=== PATIENT | male | born 1990 ===

== ENCOUNTER 2021-01-11 20:52 | Emergency (ER) | payer MEDICAID, SELFPAY ==
--- NOTE | ~2021-01-11 | CT_ITS ---
EXAMINATION: CT ABDOMEN AND PELVIS WITH CONTRAST CLINICAL INFORMATION: Abdominal pain. COMPARISON: No similar priors. TECHNIQUE: Multidetector volumetric images were obtained from the superior aspect of the liver through the pubic symphysis following administration 85 mL of Omnipaque 350 intravenous contrast. Sagittal and coronal reformatted images were obtained on the technologist's workstation. Oral contrast: No This CT examination was performed using dose optimization techniques as appropriate, variously including the following: *Automated exposure control *Adjustment of mA and/or kV according to patient size (this includes techniques or standardized protocols for targeted exams where dose is matched to indication/reason for exam; i.e. extremities or head) *Use of iterative reconstruction technique DLP: 705 mGy-cm FINDINGS: LUNG BASES: Mild dependent atelectases. No focal consolidation or pleural effusion. LIVER, GALLBLADDER, AND BILIARY TREE: The liver is normal in size, shape, and attenuation. No focal hepatic lesion or biliary ductal dilatation is present. The gallbladder is underdistended with no evidence of radiopaque gallstones, gallbladder wall thickening, or obvious pericholecystic inflammatory changes. PANCREAS: No focal abnormalities. The main pancreatic duct is nondilated. No peripancreatic free fluid or fat stranding. SPLEEN: Unremarkable. ADRENAL GLANDS: Unremarkable. KIDNEYS AND URETERS: The kidneys are normal in size, shape, and attenuation. There is a too small to characterize hypodensity in the upper pole of the left kidney (7:72) which statistically favored to represent a simple cyst and does not require further follow-up. No hydronephrosis, hydroureter, or calculi seen. No perinephric stranding. BLADDER: Unremarkable. GASTROINTESTINAL TRACT: There is wall thickening and inflammatory changes of the sigmoid colon and rectosigmoid junction. No other areas of active inflammatory bowel changes. Normal appendix. No bowel obstruction. There is a small hiatal hernia. The stomach and the small bowel are nondilated. ABDOMINAL WALL: Small bilateral fat-containing inguinal hernias. LYMPH NODES: There are a few prominent mesenteric and retroperitoneal lymph nodes which are likely reactive in nature. No lymphadenopathy by size criteria. VASCULAR: Unremarkable. PELVIC VISCERA: Trace amount of free fluid. OSSEOUS STRUCTURES: No acute or suspicious osseous abnormalities. CT/CT abdomen pelvis w con IMPRESSION: There is wall thickening and fat stranding centered in the sigmoid colon and rectosigmoid junction with questionable mild wall thickening of the rectum which is under distended. These constellation of findings are in favor to represent acute diverticulitis or acute colitis. No evidence of bowel obstruction, drainable collection or free air.
[2021-01-11 21:07] VITALS: BP 150/75; PULSE 93; RESP 16; TEMP 37.1; O2SAT 97; BMI 34.3
--- NOTE | 2021-01-11 22:08 | ED.ABDPAIN ---
HPI - Abdominal Pain General Chief Complaint: Abdominal Pain Stated Complaint: abd pain Time Seen by Provider: 01/11/21 21:50 Source: patient Mode of arrival: ambulatory History of Present Illness HPI narrative: 30-year-old male without significant past medical history presents with left flank pain that started this morning with associated subjective fevers and chills as well as nausea but no vomiting and reports some difficulty with having a bowel movement and denies any history of constipation. Patient states that throughout the day the pain has worsened and now has moved into the anterior aspect of the abdomen and is diffuse in nature, worsens with standing and denies any associated urinary pain/burning/frequency and denies any history of kidney stones. Patient does endorse that he does drink alcohol regularly, but has not drank for 3 days. Denies any falls or injuries that would explain possible musculoskeletal source. Related Data Previous Rx's Medication Instructions Recorded amoxicillin 875 mg-potassium 1 tab PO Q12H 10 Days #20 tab 01/12/21 clavulanate 125 mg tablet (Augmentin) ketorolac 10 mg tablet 10 mg PO Q6H PRN 5 Days #20 tab 01/12/21 Allergies Allergy/AdvReac Type Severity Reaction Status Date / Time No Known Allergies Allergy Verified 01/11/21 21:14 Review of Systems Review of Systems Pertinent positives and negatives as stated in HPI and 10 point review systems is otherwise negative. Physical Exam Vital Signs: Vital Signs: Last Vital Signs Temp 98.7 F 01/11/21 21:07 Pulse 96 01/12/21 00:16 Resp 16 01/12/21 00:16 BP 140/77 H 01/12/21 00:16 Pulse Ox 96 01/12/21 00:16 Body Mass Index 34.3 VITAL SIGNS: Reviewed. GENERAL: Well developed, well nourished, in no acute distress. HEAD: Normocephalic/atraumatic EYES: PERRLA, EOMI OROPHARYNX: no oral lesions noted, posterior pharynx clear NECK: Supple, no adenopathy LUNGS: Normal breath sounds. No adventitious sounds or accessory muscle use. SpO2<97> CARDIOVASCULAR: Regular rate and rhythm without noted murmurs ABDOMEN: Obese, Soft, diffusely tender without rebound non-distended with hypoactive bowel sounds, no CVA tenderness NEUROLOGIC: Alert and oriented x 4. Course Course Course Narrative: 30-year-old male with history and clinical presentation suggestive of possible renal colic, diverticulitis, pancreatitis, but not thought to be appendicitis. Review of all investigations consistent with uncomplicated diverticulitis and patient received initial antibiotics here in the emergency room as well as combination analgesics for pain control. All results is findings discussed with patient at bedside and he was otherwise discharged home in stable condition. MDM - Abdominal Pain Lab Data Result diagrams: 01/11/21 22:17 01/11/21 22:17 Labs: Lab Results 01/11/21 01/11/21 01/11/21 Range/Units 22:17 22:17 22:17 WBC 11.3 H (4.8-10.8) X10*3/uL RBC 4.74 (4.60-5.80) X10*6/uL Hgb 15.1 (14.0-18.0) g/dl Hct 44.2 (42.0-52.0) % MCV 93.2 (80.0-98.0) fL MCH 31.9 (27.0-33.0) pg MCHC 34.2 (31.0-36.0) g/dl RDW 12.8 (11.0-16.0) % Plt Count 182 (160-400) X10*3/uL MPV 11.8 (9.4-12.4) fL Immature Gran % (Auto) Cancelled Neut % (Auto) Cancelled Lymph % (Auto) Cancelled [place] % (Auto) Cancelled Eos % (Auto) Cancelled Baso % (Auto) Cancelled Lymph # (Auto) Cancelled [place] # (Auto) Cancelled Eos # (Auto) Cancelled Baso # (Auto) Cancelled Abs Immat Gran (auto) Cancelled Absolute Neuts (auto) Cancelled Absolute Nucleated RBC 0.000 (0.0-0.012) X10*3/uL Nucleated RBC % (auto) 0.0 (0.0-0.2) /100WBC Neutrophils % (Manual) 68 (45-73) % Band Neutrophils % 2 L (3-5) % Lymphocytes % (Manual) 20 (20-40) % Monocytes % (Manual) 9 (2-11) % Basophils % (Manual) 1 (0-2) % Abs Neuts (Manual) 7.9 (2.0-8.3) X10*3/uL Lymphocytes # (Manual) 2.3 (1.2-4.9) X10*3/uL Monocytes # (Manual) 1.0 (0.1-1.2) X10*3/uL Basophils # (Manual) 0.1 (0.0-0.2) X10*3/uL Platelet Estimate SLIGHTLY DECREASED (NORMAL) Large Platelets PRESENT Plt Morphology Comment NOTED RBC Morphology NORMAL Macrocytosis 1+ (5-14) /OIF Sodium 141 (135-145) mmol/L Potassium 4.1 (3.3-5.1) mmol/L Chloride 108 (96-108) mmol/L Carbon Dioxide 28 (22-29) mmol/L Anion Gap 9 L (12-20) BUN 14 (9-16) mg/dL Creatinine 1.32 (0.5-1.4) mg/dL Estim Creat Clear Calc 83.8 Estimated GFR > 60 Random Glucose 99 (60-115) mg/dL Calcium 9.2 (8.4-10.2) mg/dL Total Bilirubin 0.6 (0.0-1.0) mg/dL AST 22 (5-37) U/L ALT 45 H (0-40) U/L Alkaline Phosphatase 75 (39-117) U/L Total Protein 7.1 (6.5-8.0) g/dL Albumin 4.0 (3.5-5.0) g/dL Lipase 89 H (8-78) U/L Urine Color YELLOW Urine Appearance CLEAR Urine pH 8.0 (5.0-8.0) Ur Specific [place] 1.015 (1.005-1.025) Urine Protein NEG (NEG-TRACE) MG/DL Urine Glucose (UA) NEG (NEG) MG/DL Urine Ketones NEG (NEG) MG/DL Urine Blood NEG (NEG) Urine Nitrite NEG (NEG) Ur Leukocyte Esterase NEG (NEG) Discharge Plan Discharge Clinical Impression: Diverticulitis Patient Disposition: Home, Self-Care Instructions: Diverticulitis (ED), Diverticulitis Diet (ED) Additional Instructions: 1. Complete the entire course of antibiotics. 2. Tylenol 1000 mg, orally, every 6 hours as needed for pain control. Do not exceed 4000 mg within 24 hours. 3. Follow-up with your primary care provider on Wednesday morning for re-evaluation further outpatient management. This may include a referral to see Gastroenterology after completion of your antibiotic course. Return to the ER for acute worsening of symptoms. Prescriptions: New amoxicillin-pot clavulanate [Augmentin] 875-125 mg tablet 1 tab PO Q12H 10 Days Qty: 20 RF: 0 ketorolac 10 mg tablet 10 mg PO Q6H PRN (Reason: pain) 5 Days Qty: 20 RF: 0 PMFSH Past Medical History Source: nursing notes reviewed Medical History No known health problems Surgical History No history of previous surgery Social History Social History Alcohol intake: current Alcohol intake frequency: a few times a week Alcohol type: hard liquor Patient Tobacco Use Status: Never used Tobacco Use of substances other than those prescribed or required for medical reasons: Yes Substance Use Type: Marijuana Advance Directives: No
[2021-01-11 22:18] VITALS: BP 132/73; PULSE 87; RESP 16; O2SAT 97
[2021-01-11 22:25] LABS: Appearance Urine CLEAR; Color Urine YELLOW; Glucose Urine UA NEG (NEG); Hematocrit 44.2 % (42.0-52.0); Hemoglobin 15.1 g/dl (14.0-18.0); Leukocyte Esterase Urine NEG (NEG); Mean Corpuscular HGB Conc 34.2 g/dl (31.0-36.0); Mean Corpuscular Hemoglobin 31.9 pg (27.0-33.0); Mean Corpuscular Volume 93.2 fL (80.0-98.0); Mean Platelet Volume 11.8 fL (9.4-12.4); Nitrite Urine NEG (NEG); Platelet Count 182 X10*3/uL (160-400); Red Blood Count 4.74 X10*6/uL (4.60-5.80); Red Cell Distribution Width 12.8 % (11.0-16.0); Specific Gravity - Urine 1.015 (1.005-1.025); Urine Blood NEG (NEG); Urine Ketones NEG (NEG); Urine Protein NEG (NEG-TRACE)
[2021-01-11 22:26] LABS: WBC ABN SCTR FOR CBC 1
[2021-01-11 22:44] LABS: Alanine Aminotransferase 45 U/L (0-40); Alkaline Phosphatase 75 U/L (39-117); Anion Gap 9 (12-20); Aspartate Amino Transferase 22 U/L (5-37); Bilirubin Total 0.6 mg/dL (0.0-1.0); Blood Urea Nitrogen 14 mg/dL (9-16); Calcium 9.2 mg/dL (8.4-10.2); Carbon Dioxide 28 mmol/L (22-29); Chloride 108 mmol/L (96-108); Creatinine Clr Calc Pharmacy 83.8; Estimated Glomerular Filt Rate > 60; Glucose Random 99 mg/dL (60-115); Potassium 4.1 mmol/L (3.3-5.1); Sodium 141 mmol/L (135-145); Total Protein 7.1 g/dL (6.5-8.0)
[2021-01-11 22:50] LABS: Band Neutrophils Percent 2 % (3-5); Basophils Percent Manual 1 % (0-2); Lymphocytes Percent Manual 20 % (20-40); Macrocytosis 1+ (5-14) /OIF; Monocytes Percent Manual 9 % (2-11); Neutrophils Percent Manual 68 % (45-73); RBC Morphology NORMAL
[2021-01-11 22:51] LABS: Large Platelet PRESENT; Lipase 89 U/L (8-78); Platelet Estimate SLIGHTLY DECREASED (NORMAL); Platelet Morphology Comment NOTED
[2021-01-11] MEDS: 0.9 % Sodium Chloride 1,000 ML 999 ML IV (23:02)
[2021-01-11] MEDS: Acetaminophen 325 MG TABLET 975 MG PO (23:29)
[2021-01-11] MEDS: Ketorolac Tromethamine 15 MG/ML VIAL IVPUSH (23:31)
[2021-01-11 23:32] LABS: Basophils Abs Manual 0.1 X10*3/uL (0.0-0.2); Lymphocytes Absolute Manual 2.3 X10*3/uL (1.2-4.9); Neutrophils Absolute Manual 7.9 X10*3/uL (2.0-8.3); White Blood Count 11.3 X10*3/uL (4.8-10.8)
[2021-01-11] MEDS: iohexoL 350 MG/ML 100 ML INFUS..BTL 85 ML IV (23:51)
[2021-01-12 00:16] VITALS: BP 140/77; PULSE 96; RESP 16; O2SAT 96
[2021-01-12] MEDS: oxyCODONE HCl Immed Release 5 MG TABLET PO (01:13)
[2021-01-12] MEDS: Amoxicillin/Potassium Clav 875 MG TABLET PO (01:13)
== END 2021-01-12 01:26 | disposition home or self-care (01) ==
PROVIDERS: Emergency Provider Student in an Organized Health Care Education/Training Program
DX: K57.32 Diverticulitis of large intestine without perforation or abscess without bleeding (principal)
CPT/HCPCS: 36415; 74177; 80053; 81003; 83690; 85007; 85027; 96361; 96374; 99284; 99285; J1885; Q9967

== ENCOUNTER 2021-05-07 09:21 | Emergency (ER) | payer MEDICAID, SELFPAY ==
--- NOTE | 2021-05-07 09:29 | ED_ITS ---
HPI - General Adult General Chief complaint: Ear Problems Stated complaint: left ear pain/headaches/oral pain Time Seen by Provider: 05/07/21 09:26 Source: patient Mode of arrival: ambulatory Limitations: no limitations History of Present Illness HPI narrative: 31yo male here with complaints of oral pain the roof of my mouth worsened with eating food that began Wednesday, now spreading to forehead, left ear. No fevers, chills, sore throat, nasal congestion, rhinorrhea, cough. Received covid vaccine x2. No sick contact or recent travel. Related Data Previous Rx's Medication Instructions Recorded amoxicillin 875 mg-potassium 1 tab PO Q12H 10 Days #20 tab 01/12/21 clavulanate 125 mg tablet (Augmentin) ketorolac 10 mg tablet 10 mg PO Q6H PRN 5 Days #20 tab 01/12/21 amoxicillin 500 mg capsule 500 mg PO BID #20 cap 05/07/21 ibuprofen 600 mg tablet 600 mg PO Q8H PRN #20 tab 05/07/21 Allergies Allergy/AdvReac Type Severity Reaction Status Date / Time No Known Allergies Allergy Verified 01/11/21 21:14 Review of Systems Review of Systems: Yes all other systems are reviewed and are negative Constitutional: Constitutional: Reports no additional constitutional com plaints, Denies body ache(s), Denies chills, Denies fever(s), Denies headache(s) and Denies weakness Eyes: Eyes: Reports no additional eye complaints and Denies change in vision ENT: Reports system reviewed and no additional complaints, except as documented, Denies dizziness, Denies headache(s), Denies nasal congestion, Denies nasal discharge and Denies neck pain Cardiovascular: Cardiovascular: Reports no additional cardiovascular complaints, Denies chest pain, Denies leg edema and Denies dyspnea Respiratory: Respiratory: Reports no additional respiratory complaints, Denies cough and Denies dyspnea Gastrointestinal: Gastrointestinal: Reports no additional gastrointestinal complaints, Denies abdominal pain, Denies diarrhea, Denies nausea and Denies vomiting Genitourinary: Genitourinary: Denies urinary incontinence Musculoskeletal: Musculoskeletal: Reports no additional musculoskeletal complaints, Denies back pain, Denies arthralgias, Denies joint swelling, Denies neck pain, Denies numbness and Denies tingling Integumentary/Breasts: Skin/Breast: Reports system reviewed and no additional complaints, except as docu and Denies rash Neurologic: Reports system reviewed and no additional complaints, except as documented, Denies dizziness, Denies headache(s), Denies numbness, Denies tingling and Denies weakness PMFSH Past Medical History Attestation statement: The following information was validated with the patient. Source: old records reviewed and nursing notes reviewed Medical History No known health problems Surgical History No history of previous surgery Social History Social History Alcohol intake: current Alcohol intake frequency: a few times a week Alcohol type: hard liquor Patient Tobacco Use Status: Never used Tobacco Substance Use Type: Marijuana Advance Directives: No Physical Exam ED Vital Signs: Vital Signs - 24 hr 05/07/21 09:30 Temperature 97.9 F Pulse Rate 77 Respiratory Rate 16 Blood Pressure 144/81 H Pulse Oximetry 97 BMI result Body Mass Index 34.3 Const General: cooperative, healthy appearing, comfortable and no acute distress Orientation/consciousness: patient oriented x3 Limitations: no limitations HENMT Head: Yes normal to inspection Ears: hearing grossly normal bilaterally, TM normal on the right, mastoids normal, no periauricular adenopathy and TM abnormal bulging on the left and erythematous on the left General nose exam: Normal external nose present Face and sinus: Yes normal facial exam Mouth: Normal oral and palatal mucosa present Teeth and gingiva: caries (extensive-no obvious area of fluctuance/induration or swelling ) Throat: Yes posterior oropharynx normal, Yes tonsils normal and Yes uvula midline Eyes General: appearance normal, both eyes and all related structures Pupils: Equal, round and reactive pupils present Neck Neck: Yes normal visual inspection, Yes full ROM, Yes no lymphadenopathy and Yes no meningeal signs Chest Chest palpation & inspection: normal inspection of the chest Resp Effort & Inspection: normal respiratory effort Auscultation: clear to auscultation bilaterally Cardio Rate: regular rate Rhythm: regular rhythm Peripheral pulses: Peripheral pulses 2+ throughout GI Inspection: Yes normal to inspection Palpation (GI): Soft to palpation and nontender Skin General skin exam: no rashes or lesions noted Neuro General: patient oriented x3, moves all extremities and no meningeal signs Cranial nerves: Yes Equal, round and reactive pupils present Cognition (Neuro): normal cognition Gait exam (Neuro): Normal gait present Extrem General: Yes normal to inspection Course Course Course Narrative: Exam c/w with L AOM Oropharanx normal in appearance with the exception of extensive dental caries. But no obvious abscess. No s/s strep pharyngitis, herpetic lesions, thrush. Will send COVID testing. Treat with amoxicillin x 10 days, analgesia, recommend f/u dentist 1000-Covid screen negative. Patient to be discharged home. Reviewed worrisome signs/symptoms with patient and when to return to the ER. Comfortable with plan for discharge home. Medical Decision Making Medical Records Medical records reviewed: Yes I reviewed the patient's medical records. Lab Data Lab results reviewed: Yes I reviewed the patient's lab results. Labs: Lab Results 05/07/21 Range/Units 09:46 COVID-19 (ROBE) Negative (Negative) COVID-19 Clin Com See Note Discharge Plan Discharge Clinical Impression: Otitis media, Dental caries Patient Disposition: Home, Self-Care Instructions: Ear Infection (ED) Additional Instructions: Increase fluids, rest Covid test is negative See dental office in the next few weeks as you do have some dental caries Prescriptions: New amoxicillin 500 mg capsule 500 mg PO BID Qty: 20 0RF ibuprofen 600 mg tablet 600 mg PO Q8H PRN (Reason: pain) Qty: 20 0RF No Action amoxicillin-pot clavulanate [Augmentin] 875-125 mg tablet 1 tab PO Q12H 10 Days Qty: 20 0RF ketorolac 10 mg tablet 10 mg PO Q6H PRN (Reason: pain) 5 Days Qty: 20 0RF Rx Instructions: Patient received Toradol in the emergency room. Referrals: Physician,None [Primary Care Provider] - 1 week Stand Alone Forms: Work/School Release Interventions: ED Discharge Assessment Last Done: 05/07/21 10:23 Discharge Date/Time: 05/07/21 10:23
[2021-05-07 09:30] VITALS: BP 144/81; PULSE 77; RESP 16; TEMP 36.6; O2SAT 97; BMI 34.3
[2021-05-07 10:06] LABS: COVID-19 Test Negative (Negative); IDNOW Serial# 16C4AD1C
== END 2021-05-07 10:23 | disposition home or self-care (01) ==
PROVIDERS: Nurse Practitioner Family; Emergency Provider Emergency Medicine
DX: H66.93 Otitis media, unspecified, bilateral (principal); K02.9 Dental caries, unspecified; R51.9 Headache, unspecified; Z20.822 Contact with and (suspected) exposure to COVID-19; Z79.899 Other long term (current) drug therapy
CPT/HCPCS: 87635; 99283

== ENCOUNTER 2022-07-09 09:05 | Emergency (ER) | payer OTHER, SELFPAY ==
--- NOTE | ~2022-07-09 | CT_ITS ---
EXAMINATION: CT ABDOMEN AND PELVIS WITH CONTRAST CLINICAL INFORMATION: Right lower quadrant pain COMPARISON: January 11, 2021 TECHNIQUE: Multidetector volumetric images were obtained from the superior aspect of the liver through the pubic symphysis following administration 85 mL of Omnipaque 350 intravenous contrast. Sagittal and coronal reformatted images were obtained on the technologist's workstation. Oral contrast: No This CT examination was performed using dose optimization techniques as appropriate, variously including the following: *Automated exposure control *Adjustment of mA and/or kV according to patient size (this includes techniques or standardized protocols for targeted exams where dose is matched to indication/reason for exam; i.e. extremities or head) *Use of iterative reconstruction technique DLP: 606 mGy-cm FINDINGS: LUNG BASES: The visualized lung bases are unremarkable. No pleural or pericardial effusion. LIVER, GALLBLADDER, AND BILIARY TREE: The liver is normal in size, shape, and attenuation. No focal hepatic lesion or biliary ductal dilatation is present. The gallbladder is unremarkable with no evidence of radiopaque gallstones, gallbladder wall thickening, or obvious pericholecystic inflammatory changes. PANCREAS: Unremarkable. No abnormal mass or peripancreatic inflammatory change. SPLEEN: Unremarkable. ADRENAL GLANDS: Unremarkable. KIDNEYS AND URETERS: The kidneys are normal in size, shape, and attenuation. No hydronephrosis, hydroureter, or calculi seen. No perinephric stranding. There is a low-density lesion seen upper pole of the left kidney measuring 6 mm diameter which may represent a small cyst or angiomyolipoma. This does not require further workup. BLADDER: Unremarkable. GASTROINTESTINAL TRACT: No dilated loops of large or small bowel are evident. No free air or free fluid is identified. There is mild colonic diverticulosis. Within the proximal sigmoid colon there is a region of wall thickening with pericolonic fat streaking. No abscess collection is appreciated. This has the appearance of acute diverticulitis versus focal colitis. No evidence of acute appendicitis. ABDOMINAL WALL: No significant hernia is appreciated. LYMPH NODES: No lymphadenopathy appreciated. VASCULAR: Unremarkable. PELVIC VISCERA: Unremarkable. OSSEOUS STRUCTURES: Unremarkable. CT/CT abdomen pelvis w IV con IMPRESSION: Thick-walled region of sigmoid colon with adjacent fat stranding without abscess collection with the appearance of acute diverticulitis or focal colitis. Fleischner guidelines were followed.
[2022-07-09 09:11] VITALS: BP 127/84; PULSE 100; RESP 16; TEMP 36.5; O2SAT 97; BMI 33.3
[2022-07-09 10:23] VITALS: BP 129/89; PULSE 102; RESP 18; TEMP 37.1
--- NOTE | 2022-07-09 10:29 | PC.NURSE ---
Alert and oriented, two days ago ate [place] food that had seeds on the rice. After eating the [place] food shortly after the pain started in his abdomen. States that he has constant pain but has attacks where the pain goes from an 8/10 to a 10/10. Drinking fluids but has not eaten since two days ago. has a hx of diverticulitits. bladder has also started to hurt but is able to void. No pain wqith urination. took a x1 dose of abt yesterday from a previous visit.
--- NOTE | 2022-07-09 10:36 | PC.NURSE ---
states may be constipated, when he tries to go to the bathroom only a small amount of clear liquid comes out
[2022-07-09] MEDS: 0.9 % Sodium Chloride 1,000 ML 999 ML IV (11:04)
[2022-07-09] MEDS: Ketorolac Tromethamine 15 MG/ML VIAL IVPUSH (11:07)
[2022-07-09 11:11] LABS: Appearance Urine Clear; Color Urine Dark Yellow; Glucose Urine UA Negative (Negative); Leukocyte Esterase Urine Negative (Negative); Nitrite Urine Negative (Negative); Specific Gravity - Urine >= 1.030 (1.005-1.025); UMIC TRIGGER UACC YES; Urine Blood Negative (Negative); Urine Ketones 40 mg/dL (Negative); Urine Protein 30 (1+) mg/dL (Neg-Trace)
[2022-07-09 11:13] LABS: Bacteria Urine None Seen (None Seen); Hyaline Casts Urine 0-2 /LPF (0-2); RBC Urine 0-2 /HPF (0-2); Squamous Epithelial Cell Urine 0-2 /HPF (0-2); WBC Urine 0-5 /HPF (0-5)
[2022-07-09 11:28] LABS: Alanine Aminotransferase 55 U/L (0-40); Albumin Level 5.1 g/dL (3.5-5.0); Alkaline Phosphatase 77 U/L (39-117); Anion Gap 17 (12-20); Aspartate Amino Transferase 30 U/L (5-37); Bilirubin Total 1.8 mg/dL (0.0-1.0); Blood Urea Nitrogen 10 mg/dL (9-16); Calcium 9.8 mg/dL (8.4-10.2); Carbon Dioxide 24 mmol/L (22-29); Chloride 105 mmol/L (96-108); Creatinine Clr Calc Pharmacy 92.2; Estimated Glomerular Filt Rate > 60; Glucose Random 98 mg/dL (60-115); Potassium 3.6 mmol/L (3.3-5.1); Sodium 142 mmol/L (135-145)
[2022-07-09 11:39] LABS: Hematocrit 51.7 % (42.0-52.0); Hemoglobin 17.9 g/dl (14.0-18.0); Mean Corpuscular HGB Conc 34.6 g/dl (31.0-36.0); Mean Corpuscular Hemoglobin 30.5 pg (27.0-33.0); Mean Corpuscular Volume 88.1 fL (80.0-98.0); Platelet Count 156 X10*3/uL (160-400); Red Blood Count 5.87 X10*6/uL (4.60-5.80); Red Cell Distribution Width 12.3 % (11.0-16.0)
[2022-07-09 11:41] LABS: WBC ABN SCTR FOR CBC 1
[2022-07-09 11:55] LABS: Band Neutrophils Percent 1 % (3-5); Lymphocytes Percent Manual 13 % (20-40); Monocytes Percent Manual 8 % (2-11); Neutrophils Percent Manual 78 % (45-73); Platelet Estimate NORMAL (NORMAL); Platelet Morphology Comment NORMAL
[2022-07-09 11:56] LABS: RBC Morphology NORMAL
[2022-07-09 12:01] LABS: Lymphocytes Absolute Manual 2.4 X10*3/uL (1.2-4.9); Monocytes Absolute Manual 1.5 X10*3/uL (0.1-1.2); Neutrophils Absolute Manual 14.5 X10*3/uL (2.0-8.3); White Blood Count 18.4 X10*3/uL (4.8-10.8)
[2022-07-09] MEDS: iohexoL 350 MG/ML 100 ML INFUS..BTL IV (12:24)
--- NOTE | 2022-07-09 13:29 | ED_ITS ---
HPI - Abdominal Pain General Chief Complaint: Abdominal Pain Stated Complaint: Abd pain Time Seen by Provider: 07/09/22 10:10 Source: patient Mode of arrival: ambulatory Limitations: no limitations History of Present Illness MD elicited complaint: abdominal pain Pertinent past history: diverticulitis Onset (ago): day(s) (1) Pain Consistency: constant Location: suprapubic Severity: severe Quality: cramping and aching Radiation: LLQ and RLQ Migration to: no migration Exacerbating factors: movement Relieving factors: nothing Associated symptoms: denies other symptoms Related Data Previous Rx's Medication Instructions Recorded amoxicillin 875 mg-potassium 1 tab PO Q12H 10 days #20 tabs 01/12/21 clavulanate 125 mg tablet (Augmentin) ketorolac 10 mg tablet 10 mg PO Q6H PRN pain 5 days #20 01/12/21 tabs amoxicillin 500 mg capsule 500 mg PO BID #20 caps 05/07/21 ibuprofen 600 mg tablet 600 mg PO Q8H PRN pain #20 tabs 05/07/21 amoxicillin 875 mg-potassium 1 tab PO Q8H 10 days #30 tabs 07/09/22 clavulanate 125 mg tablet oxycodone 5 mg tablet 5 mg PO Q8H PRN pain #7 tabs 07/09/22 Allergies Allergy/AdvReac Type Severity Reaction Status Date / Time No Known Allergies Allergy Verified 01/11/21 21:14 [facility] Past Medical History Medical History No known health problems Surgical History No history of previous surgery Social History Social History Alcohol intake: current Alcohol intake frequency: a few times a week Alcohol type: hard liquor Patient Tobacco Use Status: Never used Tobacco Smoked in Last 30 Days: No Substance Use Type: Marijuana Last Used Substance: Days (ago) Advance Directives: No Advance Directives Information Provided: No Physical Exam ED Vital Signs: Vital Signs - 24 hr 07/09/22 09:11 07/09/22 10:23 Temperature 97.7 F 98.8 F Pulse Rate 100 102 H Respiratory Rate 16 18 Blood Pressure 127/84 129/89 Pulse Oximetry 97 Oxygen Delivery Method Room Air Room Air BMI result Body Mass Index 33.3 GEN: Well developed, no acute distress, alert, oriented HEENT: Normocephalic, atraumatic, normal external ears, nose appears normal, no oropharyngeal edema or exudates Eyes: Normal to appearance Neck: Supple, no lymphadenopathy Respiratory: Talks in complete sentences, no respiratory distress, clear to auscultation bilaterally Cardiovascular: Regular rate and rhythm, no murmurs rubs or gallops Abdomen: Soft, suprapubic and RLQ tenderness, nondistended, no guarding, no rebound Back: No CVA tenderness Extremities: No clubbing cyanosis or edema Neurologic: No focal neurologic deficits, cranial nerves 2-12 intact, strength is 5/5 bilaterally Skin: No rash Course Course Course Narrative: 32-year-old male with history of diverticulitis presents with abdominal pain. The pain started yesterday. Pain is severe. Examination revealed suprapubic and right lower quadrant tenderness. Multiple differential diagnoses were considered. A CT scan which identified acute sigmoid diverticulitis. This is his 3rd or 4th episode within the last year. Patient does have an elevated white blood cell count with no significant bandemia. There is no obvious complication of his diverticulitis and does not warrant hospitalization. Patient will start Augmentin 3 times daily the next 10 days. Recommended follow-up with his primary care provider. He will return for any worsening or concerning symptoms including uncontrolled pain, intractable nausea vomiting, hematochezia or melanotic stools Medical Decision Making Medical Decision Making [facility] Narrative: 32-year-old male presents with acute abdominal pain. Has suprapubic and right lower quadrant abdominal tenderness. Differential diagnosis includes acute appendicitis, UTI, diverticulitis, colitis, IBD, IBS, gastroenteritis, musculoskeletal, referred pain, radicular pain. Patient will require CT scan the abdomen pelvis rule out the differential diagnosis described above. He will have routine lab testing. I will provide the patient with analgesia and IV fluids. Will have frequent re-evaluation Differential Diagnosis Differential Diagnoses: The differential diagnosis associated with the presentation includes (See above) Lab Data [facility] Lab Attestation statement: I reviewed the patient's lab results. 07/09/22 11:03 07/09/22 11:03 Labs: Lab Results 07/09/22 07/09/22 07/09/22 Range/Units 11:03 11:03 11:03 WBC 18.4 H (4.8-10.8) X10*3/uL RBC 5.87 H D (4.60-5.80) X10*6/uL Hgb 17.9 (14.0-18.0) g/dl Hct 51.7 (42.0-52.0) % MCV 88.1 (80.0-98.0) fL MCH 30.5 (27.0-33.0) pg MCHC 34.6 (31.0-36.0) g/dl RDW 12.3 (11.0-16.0) % Plt Count 156 L (160-400) X10*3/uL MPV 13.0 H (9.4-12.4) fL Immature Gran % (Auto) Cancelled Neut % (Auto) Cancelled Lymph % (Auto) Cancelled Floyd % (Auto) Cancelled Eos % (Auto) Cancelled Baso % (Auto) Cancelled Lymph # (Auto) Cancelled [place] # (Auto) Cancelled Eos # (Auto) Cancelled Baso # (Auto) Cancelled Abs Immat Gran (auto) Cancelled Absolute Neuts (auto) Cancelled Absolute Nucleated RBC 0.000 (0.0-0.012) X10*3/uL Nucleated RBC % (auto) 0.0 (0.0-0.2) /100WBC Neutrophils % (Manual) 78 H (45-73) % Band Neutrophils % 1 L (3-5) % Lymphocytes % (Manual) 13 L (20-40) % Monocytes % (Manual) 8 (2-11) % Abs Neuts (Manual) 14.5 H (2.0-8.3) X10*3/uL Lymphocytes # (Manual) 2.4 (1.2-4.9) X10*3/uL Monocytes # (Manual) 1.5 H (0.1-1.2) X10*3/uL Platelet Estimate NORMAL (NORMAL) Plt Morphology Comment NORMAL RBC Morphology NORMAL Sodium 142 (135-145) mmol/L Potassium 3.6 (3.3-5.1) mmol/L Chloride 105 (96-108) mmol/L Carbon Dioxide 24 (22-29) mmol/L Anion Gap 17 (12-20) BUN 10 (9-16) mg/dL Creatinine 1.16 (0.5-1.4) mg/dL Estim Creat Clear Calc 92.2 Estimated GFR > 60 Random Glucose 98 (60-115) mg/dL Calcium 9.8 D (8.4-10.2) mg/dL Total Bilirubin 1.8 H (0.0-1.0) mg/dL AST 30 (5-37) U/L ALT 55 H (0-40) U/L Alkaline Phosphatase 77 (39-117) U/L Total Protein 9.0 H (6.5-8.0) g/dL Albumin 5.1 H (3.5-5.0) g/dL Urine Color Dark Yellow Urine Appearance Clear Urine pH 6.0 (5.0-9.0) Ur Specific [place] >= 1.030 H (1.005-1.025) Urine Protein 30 (1+) H (Neg-Trace) mg/dL Urine Glucose (UA) Negative (Negative) mg/dL Urine Ketones 40 (Negative) mg/dL Urine Blood Negative (Negative) Urine Nitrite Negative (Negative) Ur Leukocyte Esterase Negative (Negative) Urine RBC 0-2 (0-2) /HPF Urine WBC 0-5 (0-5) /HPF Ur Squamous Epith Cells 0-2 (0-2) /HPF Urine Bacteria None Seen (None Seen) Hyaline Casts 0-2 (0-2) /LPF Independent Interpretation I performed an independent interpretation of an: CT Scan (Acute inflammatory process with in the left lower quadrant/sigmoid colon) Radiology Impression Discussion of test interpretation with radiology: I have reviewed the radiologist's reading. Radiologist Impression: CT/CT abdomen pelvis w IV con IMPRESSION: Thick-walled region of sigmoid colon with adjacent fat stranding without abscess collection with the appearance of acute diverticulitis or focal colitis.? ? Fleischner guidelines were followed. Dictated By: Tye Monique MD Signed By: <Electronically signed by Tye Monique MD in OV> 07/09/22 1258 Prescription Management I considered prescription management with: Pain Medication and Antibiotic Medications Administered Discontinued Medications Generic Name Dose Route Start Last Admin Trade Name Freq PRN Reason Stop Dose Admin Sodium Chloride 1,000 mls @ 999 mls/hr 07/09/22 10:45 07/09/22 13:02 Ns IV 07/09/22 11:45 Infused .Q1H1M RICKY Infusion Iohexol 100 ml 07/09/22 12:24 07/09/22 12:24 Iohexol 350 Mg/Ml 100 Ml Infus..Btl IV 07/09/22 12:25 85 ml ONCE ONE Administration Ketorolac Tromethamine 15 mg 07/09/22 10:38 07/09/22 11:07 Ketorolac Tromethamine 15 Mg/Ml Vial IVPUSH 07/09/22 10:39 15 mg ONCE ONE Administration Discharge Plan Discharge Clinical Impression: Diverticulitis Patient Disposition: Home, Self-Care Instructions: Diverticulitis (ED) Prescriptions: New amoxicillin-pot clavulanate 875-125 mg tablet 1 tab PO Q8H 10 Days Qty: 30 0RF oxycodone 5 mg tablet 5 mg PO Q8H PRN (Reason: pain) Qty: 7 0RF Rx Instructions: Partial Fill upon patient request. No Action amoxicillin-pot clavulanate [Augmentin] 875-125 mg tablet 1 tab PO Q12H 10 Days Qty: 20 0RF ketorolac 10 mg tablet 10 mg PO Q6H PRN (Reason: pain) 5 Days Qty: 20 0RF Rx Instructions: Patient received Toradol in the emergency room. amoxicillin 500 mg capsule 500 mg PO BID Qty: 20 0RF ibuprofen 600 mg tablet 600 mg PO Q8H PRN (Reason: pain) Qty: 20 0RF Referrals: [facility] [place] [facility] [Provider Group]
== END 2022-07-09 14:03 | disposition home or self-care (01) ==
PROVIDERS: Emergency Provider Emergency Medicine
DX: K57.32 Diverticulitis of large intestine without perforation or abscess without bleeding (principal); Z79.899 Other long term (current) drug therapy
CPT/HCPCS: 36415; 74177; 80053; 81001; 85007; 85027; 96361; 96374; 99284; J1885; Q9967

== ENCOUNTER 2024-05-14 20:46 | Emergency (ER) | payer OTHER, SELFPAY ==
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
[2024-05-14 21:29] VITALS: BP 142/90; PULSE 69; RESP 18; TEMP 36.8; O2SAT 97; BMI 31.6
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
[2024-05-15] MEDS: Acetaminophen 325 MG TABLET 975 MG PO (00:57)
[2024-05-15] MEDS: Ibuprofen 600 MG TABLET PO (00:58)
[2024-05-15 01:01] VITALS: BP 136/80; PULSE 66; RESP 16; TEMP 36.7; O2SAT 97
== END 2024-05-15 01:03 | disposition home or self-care (01) ==
PROVIDERS: Emergency Provider Emergency Medicine; PCP Student in an Organized Health Care Education/Training Program
DX: S16.1XXA Strain of muscle, fascia and tendon at neck level, initial encounter (principal); S39.012A Strain of muscle, fascia and tendon of lower back, initial encounter; V43.52XA Car driver injured in collision with other type car in traffic accident, initial encounter; Y93.89 Activity, other specified; Y92.410 Unspecified street and highway as the place of occurrence of the external cause; Y99.9 Unspecified external cause status
CPT/HCPCS: 72040; 72100; 99283

== ENCOUNTER → 2024-05-14 21:50 | Outpatient (BNV) | payer OTHER, SELFPAY | PROVIDERS: Visit Provider Radiology Diagnostic Radiology | DX: S13.4XXA Sprain of ligaments of cervical spine, initial encounter (principal); S39.012A Strain of muscle, fascia and tendon of lower back, initial encounter; V89.2XXA Person injured in unspecified motor-vehicle accident, traffic, initial encounter | CPT/HCPCS: 72040; 72100 ==